=== PATIENT | female | born 1970 | race Asian ===

== ENCOUNTER 2017-08-29 19:38 | Emergency (ER) | payer BC, SELFPAY ==
[2017-08-29 19:39] VITALS: BP 106/78; PULSE 77; RESP 15; TEMP 36.6; O2SAT 98; BMI 21.9
[2017-08-29 19:48] VITALS: O2SAT 100
[2017-08-29] MEDS: MethylPREDNISolone 125 MG/2 ML Vial 100 MG IV (20:24)
[2017-08-29] MEDS: DiphenhydrAMINE 50 MG/ML Syringe 25 MG IV (20:25)
--- NOTE | 2017-08-29 20:25 | RAD_ITS ---
STUDY: X-RAY CHEST REASON FOR EXAM: Female, 47 years old. Shortness of breath TECHNIQUE: Frontal view of the chest COMPARISON: 04/09/2017 FINDINGS: The lungs are clear. There are no pleural effusions. There is no pneumothorax. The heart is normal in size. The visualized osseous structures are within normal limits. RAD/Chest 1 View (Portable) IMPRESSION: No acute thoracic pathology. Electronically Signed: Ajith Mcallister, at 21:31 EDT Tel , Service support ,
[2017-08-29 22:09] VITALS: BP 108/65; PULSE 80; RESP 18; O2SAT 98
--- NOTE | 2017-08-29 23:00 | ED.VISSUMM ---
- ER Visit Summary Date of Service: 08/29/17 Chief Complaint: Shortness of breath History of Present Illness: The patient is a 47 F reports shortness of breath starting at 630 tonight after eating dinner. Patient states that she ate spicy scallops. She is complaining of a acid feeling in the back of her throat and states that she feels better after burping. She told the nurse that she took Benadryl prior to arrival thinking it might be an allergic reaction. Patient tells me this happens to her approximately once a week, but usually does not last this long or this severe. Patient states she was diagnosed with asthma but has never had an asthma attack and does not know what that feels like. Physical Examination: Vital signs are unremarkable. Patient sitting upright in bed leaning forward. She speaking with a strong voice. Head and neck examination was right TM to be clear. There is some mild debris in the left ear canal. Intraoral examination reveals no tongue edema. Heart is regular rate and rhythm. Lung sounds are clear. Abdomen is soft nontender. Skin examination reveals no rash or lesions. Test Results: Portable chest x-ray reveals no acute pathology. Emergency Department Course and Treatment: Patient was initially ordered a GI cocktail. Before this could be given as asked to come back in and reevaluate the patient. Patient was leaning forward and drooling. She stated that she was having difficulty swallowing. She speaks with a strong voice. Her lungs are clear to auscultation bilaterally. Her oxygen saturation is 100%. Patient states she does not really feel that there is something caught in her throat she does not remember choking on anything. At that time IV line was established and she was given Solu-Medrol, Benadryl, and Pepcid. Patient was rechecked multiple times with no further drooling. She states that she is feeling significantly improved. Patient has been observed for 2-1/2 hours after medication given it has remained completely asymptomatic. She is able to get up and ambulate to the restroom and back without difficulty. I did explain to the patient that I have no way on my testing to determine if this was truly an allergic reaction to something she ate. With her having transient drooling I certainly do have a concern for this. Patient will be given prednisone for home of the next several days and she will take Benadryl. I will write her for an EpiPen to have at home in case of emergency only. Treatment Plan: [] Disposition: Discharge Impression: Allergic reaction, improved This note was generated with [employer] dictation software. It may contain incorrect words, spelling, and punctuation that were not noted in review of the chart prior to signing ED Disposition - Plan for ED Patient: Chief Complaint: Shortness of Breath Referrals: Tremaine Rao MD [Primary Care Provider] -
--- NOTE | 2017-08-29 23:03 | ED.DEP ---
ED Disposition - Plan for ED Patient: Disposition: Home or Assisted Living Chief Complaint: Shortness of Breath Instructions: ED Allergic Reaction General Other Prescriptions: Epinephrine [Epi Pen] 0.3 mg IM X1 PRN #1 syringe PRN Reason: Allergies Prednisone [Deltasone] 40 mg PO DAILY #8 tablet Referrals: Tremaine Rao MD [Primary Care Provider] - 1 Week
[2017-08-29 23:20] VITALS: BP 101/55; PULSE 77; RESP 16; O2SAT 96
== END 2017-08-29 23:20 | disposition home or self-care (01) ==
PROVIDERS: Emergency Provider Emergency Medicine; Family Provider Family Medicine; PCP Family Medicine
DX: T78.1XXA Other adverse food reactions, not elsewhere classified, initial encounter (principal); X58.XXXA Exposure to other specified factors, initial encounter; J45.909 Unspecified asthma, uncomplicated
CPT/HCPCS: 71045; 96365; 96375; 99284; J7050; A4216; J3490

== ENCOUNTER → 2017-12-04 16:15 | Outpatient (CLI) | payer BC, SELFPAY ==
[2017-12-11 09:58] LABS: HPV Reflexed? NOT INDICATED
== END ==
PROVIDERS: Family Provider Family Medicine; PCP Family Medicine; Visit Provider Obstetrics & Gynecology
DX: Z12.4 Encounter for screening for malignant neoplasm of cervix (principal)
CPT/HCPCS: 88175; G0145

== ENCOUNTER → 2017-12-24 15:45 | Outpatient (CLI) | payer BC, SELFPAY ==
--- NOTE | 2017-12-24 15:47 | BI_ITS ---
MAMMOGRAPHY - BILATERAL SCREENING REASON FOR EXAM: Female, 47 years old. Routine annual screening examination. PERTINENT HISTORY: Non-contributory. TECHNIQUE: Digital bilateral breast luis angel (3D mammographic acquisition) in the CC and MLO projections. 2-D mediolateral oblique (MLO) and craniocaudad (CC) views of both breasts were obtained. CAD: Full Field Digital Mammography with Computer Added Detection was performed. COMPARISON: Comparison is made with prior examination dated November 25, 2016 and December 21, 2014. FINDINGS: Breast Composition: The breasts are extremely dense, which lowers the sensitivity of mammography. There is a 2.1 cm x 2 cm well-defined nodule in the upper midportion of the left breast. There is also evidence of a 1.8 cm x 1.4 cm well-defined nodule with a small calcification in the mid deep portion of the breasts. Correlation with ultrasound is recommended. No other significant abnormalities are identified. BI/SCREENING MAMM (CAD), BILAT IMPRESSION: Nodular densities in the left breast as described. Correlation with ultrasound is recommended. ASSESSMENT CATEGORY: BIRADS Category 0: Incomplete. Need additional imaging evaluation. A letter regarding these results will be sent to the patient by the facility within 30 days. Approximately 10% of breast cancers are not detected by mammography. A normal mammogram should not delay biopsy of a clinically suspicious abnormality. [id number] Electronically Signed: Jeyson Morales MD at 11:29 EDT Tel [phone], Service support ,
== END ==
PROVIDERS: Family Provider Family Medicine; PCP Family Medicine; Visit Provider Obstetrics & Gynecology
DX: Z12.31 Encounter for screening mammogram for malignant neoplasm of breast (principal)
CPT/HCPCS: 77063; 77067

== ENCOUNTER → 2017-12-29 15:18 | Outpatient (CLI) | payer BC, SELFPAY ==
--- NOTE | 2017-12-29 15:23 | US_ITS ---
STUDY: ULTRASOUND BREAST - LEFT REASON FOR EXAM: Female, 47 years old. Left breast nodules, additional ultrasound imaging recommended. TECHNIQUE: Axial and longitudinal images of the LEFT breast were performed with a high resolution ultrasound transducer. COMPARISON: No prior ultrasound imaging available. Correlation mammograms 12/24/2017 through 12/21/2014. FINDINGS: LEFT Breast: The first lesion measures 2.0 x 1.3 x 0.9 cm and appears round and heterogeneous with probably hypoechogenicity with smooth appearing well-demarcated margins without internal color Doppler signal suggests a minimally complex cyst. Clock notation: 12 o'clock position. Distance from nipple: 2 cm. Posterior Enhancement: Mild Posterior Shadowing: None Margins: As above Echogenicity: As above Compression effect on Shape: No change identified. The second lesion is approximately 0.5 x 0.4 x 0.5 cm in the 3:00 position 2 cm from the nipple and appears to represent a round smooth margin well-demarcated heterogeneous mostly hypoechoic minimally complex cyst without internal color Doppler signal. The third lesion is approximate 0.5 x 0.9 x 0.3 cm in the 3:00 position and appears to represent a round smooth margin well-demarcated hypoechoic cyst without internal color Doppler signal identified. Color Doppler signal adjacent to the periphery is seen in one area.. The retroareolar region shows approximately 1.8 x 2.3 x 0.9 cm heterogeneous mostly hypoechoic area which may represent enlarged ducts without abnormal internal color Doppler signal. US/Breast Limited Unilateral IMPRESSION: Probably benign ultrasound findings as described some of which appear to correspond to the 2 mammographic findings described. Recommend left mammogram in 6 months for short-term interval follow-up of probably benign findings. Possible left targeted ultrasound to follow as clinically indicated. ASSESSMENT CATEGORY: BIRADS Category 3: Probably Benign - Short-Interval Follow-up Suggested. A letter regarding these results will be sent to the patient by the facility within 30 days. Electronically Signed: Aj Gulshan, at 17:55 EDT Tel , Service support ,
== END ==
PROVIDERS: Family Provider Family Medicine; PCP Family Medicine; Visit Provider Obstetrics & Gynecology
DX: N63.20 Unspecified lump in the left breast, unspecified quadrant (principal)
CPT/HCPCS: 76642

== ENCOUNTER → 2018-06-26 13:12 | Outpatient (CLI) | payer BC, SELFPAY | PROVIDERS: Visit Provider Obstetrics & Gynecology | DX: R30.0 Dysuria (principal) | CPT/HCPCS: 87086 ==

== ENCOUNTER 2018-08-10 05:45 | Day surgery (SDC) | payer BC, SELFPAY ==
[2018-08-05 13:29] LABS: Hematocrit 43.5 % (37-47); Hemoglobin 14.7 g/dl (12.0-15.0); Mean Corp Hgb Conc 33.8 g/gl (32-36); Mean Corpuscular Hgb 30.4 pg (27.0-32.0); Mean Corpuscular Volume 89.9 fL (81-99); Mean Platelet Vol. 10.3 fl (6.2-12.0); Platelet Count 267 K/mm3 (150-450); RBC Distribution Width CV 12.6 % (11.6-14.6); RBC Distribution Width SD 41.4 fl (35.1-43.9); Red Blood Count 4.84 M/mm3 (4.2-5.4); White Blood Count 5.1 K/mm3 (4.4-11.0)
[2018-08-05 13:34] LABS: Scan Indicated on CBC? Y/N NO
[2018-08-05 13:39] LABS: AST(SGOT) 17 U/L (15-37); Alanine Aminotransfer ALT/SGPT 25 U/L (13-56); Albumin, Serum 3.7 g/dL (3.2-5.0); Alkaline Phosphatase 45 U/L (45-117); Bilirubin, Direct 0.09 mg/dL (0.00-0.30); Creatinine, Serum 0.67 mg/dL (0.55-1.02); EST Glomerular Filtration Rate 100 mL/min (>60); Est Glom Filt Rate - Afr Amer 121 mL/min (>60); Globulin 4.7 g/dL (2.2-4.2); Protein, Total 8.4 g/dL (6.4-8.2)
[2018-08-05 13:48] LABS: International Normalized Ratio 1.1; Partial Thromboplast Time 30.3 Seconds (24.1-36.2); Prothrombin Time (Protime)PT. 13.7 SECONDS (11.7-14.9)
--- NOTE | 2018-08-09 20:30 | PCM.HP.BLA ---
History and Physical Date of Admission: 08/10/18 Surgical History and Physical Kirsten Phillips, a 48 year old female 2 0 3 0 2, presents for RAVH/BS on August 10, 2018 at 11:40. -- Large Symptomatic Fibroid, Menorrhagia, Pelvic Pain s/p Ablation for Menorrhagia -- Pelvic pain which began months ago. Kirsten claims it started gradually and has been present months. It occurs intermittently. It is located in the lower abdomen. Severity is moderate; Associated signs and symptoms are cramping, urgency. Additional comments are: u/s shows 7 cm uterine fibroid; Additional comments are: on Mircette which seems to controlling bleeding recently. MEDICATIONS HISTORY: Current medications prescribed by our practice are: 1. Mircette (28) 0.15 mg-0.02 mg (21)/0.01 mg (5) tablet, One pill by mouth once a day Patient is also takin. calcium 500 mg tablet 2. multivitamin tablet 3. Zyrtec 10 mg tablet, prn ALLERGIES: aspirin, Numbness, Aspirin and Bleeding (non-specific) Infections - Hepatitis B Illnesses - no serious past illnesses Accidents - no injuries of consequence Hospitalizations - Childbirth and see surgery Chicken Pox 07/2005; Review of Systems: GENERAL - Denies fever, or chills SKIN - Denies skin changes EYES - Denies visual changes EARS - Denies difficulty hearing NOSE - Denies nasal congestion or bleeding MOUTH - Denies sore throat or difficulty swallowing NECK - Denies pain or swelling RESPIRATORY - Denies shortness of breath or wheezing CARDIOVASCULAR - Denies palpitations or chest pain GASTROINTESTINAL - Denies nausea, vomiting, diarrhea, constipation GENITOURINARY - Denies dysuria, frequency of urination, incontinence of urine MUSCULOSKELETAL - Denies joint or muscle pain NEUROLOGICAL - Denies localized numbness or weakness PSYCHIATRIC - Denies depression or anxiety ENDOCRINE - Denies heat or cold intolerance, weight loss or gain HEMATO-IMMUNOLOGIC - Denies excessive bleeding with cuts SOCIAL HISTORY: Alcohol Use - drinks occasionally Smoking - denies smoking Diet - no special diet Lifestyle - moderate stress lifestyle and Exercise - active Seat Belt Use - always 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 Paternal history of Diabetes. Father: Diabetic. Maternal Grandmother: Ovarian cancer. MENSTRUAL HISTORY: LMP Known?- Approximate-Month KnownAmount/Duration - 5 to 7 days, Regularity - Regular, Frequency - monthly days, LMP - 07/11/18, Age Onset Menarche - 13 PAST PREGNANCIES: Total Pregnancies - 6; Full Term Pregnancies - 2; Premature - 0; Abortions, Induced - 0; Abortions, Spontaneous - 3; Ectopics - 0; Multiple Births - 0; Living Children - 2 SURGICAL HISTORY: 1. D and C X3 ; - miscarriage 2. 10/11/2010 Hysteroscopy, [facility] ; Joseph Saucedo M.D. - Menorrhagia PHYSICAL EXAM BP- 102/70 Sitting, Right arm, regular cuff Weight- 106.03688 lbs Height- 61 inch BMI:20.07 CONSTITUTIONAL - NAD, well nourished, and well developed SKIN - No rash, lesions, or ulcers HEENT - Normocephalic, PERRLA, EOMI NECK - No nodes, no nuchal rigidity and thyroid normal size and texture LYMPH NODES - Palpation of lymph nodes in neck and groins within normal limits LUNGS - CTA x2 without wheezes, crackles or rales CARDIAC - Regular rate and rhythm without rubs, murmurs, or gallops BREAST - No dominant masses, no tenderness, no axillary adenopathy, no nipple discharge, no skin changes ABDOMEN - Without hepatosplenomegaly, distention, masses, rebound, or guarding; normal bowel sounds; no hernias EXTREMITIES - No edema or calf tenderness NEUROLOGICAL - Cranial nerves II-XII grossly intact PSYCHIATRIC - A and O to time, place, person, mood and affect External Genitial Vagina - non-tender without lesions Urethra/Urethral Meatus - non-tender Bladder - increased tenderness over trigone Vagina - vaginal diallo are pink and moist without loss of rugae and no evidence of atropy Cervix - without cervical motion tenderness and has normal size and features without evident lesions and high in vagina Uterus - enlarged uterus 10 wks, wt 175-275 g Adnexa - clear without massess or tenderness ASSESSMENT/PLAN: 1. Enlarged Uterus, Leiomyoma, Unspec, Menorrhagia, Pelvic Pain and Unspec Likely due to large fibroid noted on u/s. Discussed options for treatment and suggested RAVH/BS. Desires we proceed. Discussed RBAs and all questions answered.
[2018-08-10] VITALS (12 sets, daily range): BP systolic 81–116; BP diastolic 41–71; PULSE 53–76; RESP 14–18; TEMP 36.1–37.2; O2SAT 95–100; BMI 21.3
[2018-08-10 06:56] LABS: Internal QC Validated? YES +Cl - CLEAR BKGD
[2018-08-10 06:57] LABS: Pregnancy, Urine Negative Negative
--- NOTE | 2018-08-10 07:30 | HYST_PTH ---
PATIENT: ANAIS VALENTIN LOC: [facility] U#:[id number] AGE/SX: 48/F ROOM: RE08/10/[address]: Dr. Joseph Saucedo MD : 1970 BED: DIS: 08/11/2018 SPEC #: [id number] RECD: 08/10/18 11:27 STATUS: SHARAD GUDELIA #: [id number] BUTCH: 08/10/18 07:[address]: Joseph Saucedo DEPT: SURGICAL PATHOLOGY RECD BY: Domenic Moya ENTERED: 08/10/18 12:07 SP TYPE: HYSTERECT OTHR DR: Dr. Tremaine Rao MD Tissues: Uterus, NOS Procedures: Surgery Specimen Level V HEADER OPERATION: Robotic assisted vaginal hysterectomy, bilateral salpingotomy PRE-OP DIAGNOSIS: Enlarged uterus, leiomyoma, menorrhagia, pelvic pain TISSUE SUBMITTED: Uterus, cervix, bilateral fallopian tubes, right ovary MICROSCOPIC DIAGNOSIS Uterus, cervix, bilateral fallopian tubes and right ovary, vaginal hysterectomy, bilateral salpingectomy and right oophorectomy: Cervix - chronic cystic cervicitis. Endometrium - focal area of weakly proliferative endometrium. See comment. Myometrium - diffuse adenomyosis. - An intramural leiomyoma (1.5 cm in diameter). Bilateral fallopian tubes - no pathologic diagnosis. Right ovary - no pathologic diagnosis. Left paratubal cyst. SJ:royal 08/11/18 COMMENT Most of the endometrium appears denuded. MICROSCOPIC DESCRIPTION Slides are reviewed. GROSS DESCRIPTION Received in fixative is one container labeled with the patient's name and designated uterus, cervix, bilateral fallopian tubes and right ovary. The specimen consists of a hysterectomy specimen in multiple pieces consisting of uterus, cervix, attached right fallopian tube and ovary and attached left fallopian tube to the largest piece of uterus. The uterus with cervix in multiple pieces weighs 304 gm. One of the pieces consists of cervix which measures 4.5 x 2 x 2 cm. The ectocervical mucosa is congested. The endocervical canal measures 4 cm in length. The endocervical mucosa is unremarkable. Sections of the cervix reveal a few cysts filled with mucoid material. The largest piece of uterus measures 10 x 9 x 7 cm. A focal area shows endometrium which is starr, glistening without any mass lesion and measures <0.1 cm in thickness. The smaller pieces of the uterus measure in aggregate 12 x 11 x 3 cm. Sections of the largest piece of uterus reveal diffusely thickened myometrial cut surfaces without any mass lesion. The myometrial wall measures up to 5 cm in thickness. Sections of the smaller pieces of the uterus reveal one nodular mass measuring 1.5 cm in diameter. Sections of this mass reveals starr whorled cut surfaces without areas of hemorrhage, necrosis or cystic degeneration. The right fallopian tube measures 6 cm in length and 0.5?cm in diameter. The fimbrial end is identified. No tubo-ovarian adhesion is noted. Sections reveal unremarkable cut surfaces. The right ovary measures 1.5 x 1 x 0.4 cm. Sections reveal unremarkable cut surfaces. The left fallopian tube is similar appearance to right and measures 8 cm in length and 0.5?cm in diameter. A paratubal cyst is also noted measuring 1 cm in greatest dimension. The cyst is filled with clear fluid. [employer] sections are submitted in 12 cassettes as follows: 1 & 2 - cervix, 38??uterine wall (3, 4 & 5 also contains endometrium, 6 & 7 also contains the serosal surface, 8??smaller fragments; 3-5 contains the section from the largest uterine piece and 8 contains a section from the smaller detached pieces), 9 - nodular mass, 10 - right fallopian tube, 11 - right ovary, entirely submitted, 12 - left fallopian tube and paratubal cyst. / KYREE:royal 08/10/18 TC:5 CPT: 29542
--- NOTE | 2018-08-10 07:41 | OP.PCM_ITS ---
Report of Operation Date of Procedure: 08/10/18 Pre-Operative Diagnosis: Uterine Fibroids, Menorrhagia, Pelvic Pain, Prior Ablation Post-Operative Diagnosis: Uterine Fibroids, Menorrhagia, Pelvic Pain, Prior Ablation Surgery/Procedure Performed:: RAVH/Bilater Salpingectomy/ Right Oophrectomy Description of Surgical Findings:: 14 cm fibroid uterus with normal-appearing fallopian tubes and ovaries. professional golf tournament player: Jose Robb Type of Anesthesia:: General - Endotracheal Anesthesiologist: Tomas Fontaine Specimen's removed: Uterus, bilateral fallopian tubes, right ovary Drains: Joy to straight drain Estimated Blood Loss (mL): Minimal Fluids Replaced: Crystalloid Description of Procedure: Surgeon: Joseph Saucedo MD, FACOG Indication: This is a 48 year old patient who has been having problems with menorrhagia and symptomatic uterine fibroids. Conservative measures have not been helpful. The patient has been counseled regarding the risks, benefits and alternatives of this procedure including the possibility of bleeding, infection, and injury to surrounding structures such as bowel bladder and all questions were answered. She understands that if BSO is needed that she will need to be on HRT for an indefinite period of time. Procedure: Pt taken to the operating room where after induction of general anesthesia the patient was prepped and draped in the usual sterile fashion and placed on a non-slip Huggy-u-vac device. Trendendelenburg test was satisfactory. Bladder was drained of urine with a Joy catheter which was left in place. Anterior cervix grasped and cervix was dilated to about 3-4 mm. Uterus sounded to 8 cms. 0-Vicryl suture was placed at the 3:00 and 9:00 position of the cervix. A small V-care device was then placed in the uterus to allow uterine manipulation and attention was turned to the laparoscopic portion of the procedure. Ropivocaine 0.5% was injected approximately 3 cm superior to the umbilicus and an 8 mm robotic camera port was introduced directly with intraperitoneal placement confirmed with insufflation. 8 mm robotic side ports were introduced under direct visualization approximately 10 cm lateral and 2 cm inferior to the umbilical port. A 5 mm left upper quadrant port was introduced and airseal insufflation with CO2 was started. The above findings were noted. Robot was docked without difficulty and attention turned to the robotic portion of the procedure. Approximately 20 cc of Ropivicaine was used. Bilateral infundibulocal ligaments/mesosalpinx were ligated with 35 roth bipolar coagulation to the level of the round ligament. The posterior aspect of the cervix was identified and then opened for about 1 cm using 25 watt monopolar cautery but we were unable to identify the V-care device which had been placed vaginally due to a wide posterior vaginal cuff. Bladder flap was opened and divided to the level of the round ligaments using monopolar cautery. Progressive bites were then ligated on each side of the cervix with 35 roth bipolar cautery to the uterine arteries. The anterior vaginal mucosa was then entered and cervix circumscribed with monopolar cautery. Uterus and attached ovaries and tubes were then removed through the vagina in pieces after undocking the robot. Robot was re-docked and vaginal cuff was closed first with 0-Vicryl Sydney stitches placed at each angle followed by closure of the mid-cuff with 0- Monocryl V-lock suture in two layers. Pelvis was copiously irrigated with saline and the right left ureters yepez noted to peristalse. Robot was undocked and trocars were removed with as much gas as possible. Incisions were closed with 4-0 Monocryl subcuticular sutures and incisions covered with steri-strips and opsite dressing. The patient tolerated the procedure well and was taken to the recovery room in satisfactory condition. Sponge, instruments and needle counts were all correct. There were no apparent complications of the surgery. Cefotan 2 gms IV was given prior to the procedure. Grafts/Implants Used: None - Complications None - Admit VTE Documentation VTE Present on Admission: Yes VTE Mechan Device Prophylaxis: SCD's VTE Pharm Prophylaxis ordered?: Yes
--- NOTE | 2018-08-10 07:42 | DCINST_ITS ---
Discharge Diet: No Restrictions Discharge Activity: Return to Normal Activity, May Not Drive - while taking narcotic pain medications., May Shower May resume sexual activity in: 6-8 weeks Call your doctor if your incision/area has: Continuous Slow Oozing, Sudden Increased Bleeding, Increased Pain/ Swelling, Increased Redness, Foul Smelling Discharge Call your doctor if you observe: Fever of 101 or Higher, Inability to urinate, Inability to have a bowel movement, Using more than one pad per hour Allergies/Adverse Reactions: Allergies NSAIDS (Non-Steroidal Anti-Inflamma Adverse Reaction (Verified 08/03/18 08:19) Other bleeds easily Medications to take at Discharge Calcium Citrate/Vitamin D3 [Hm Calcium Citrate +Vit D3 Tab] 1 each PO DAILY 06/23/14 Iron Carbonyl [Feosol] 45 mg PO DAILYCM 06/23/14 Multivitamins,Therapeutic 1 tab PO DAILY 06/23/14 Epi Pen (for allergic rxn) [Epi Pen] 0.3 mg IM X1 PRN #1 syringe 08/29/17 Docusate Sodium [Colace] 100 mg PO BID PRN PRN #60 cap 08/10/18 Oxycodone [Oxyir] 5 mg PO Q6H PRN PRN 7 Days #20 tab 08/10/18 The following prescriptions were given: Oxycodone [Oxyir] 5 mg PO Q6H PRN PRN 7 Days #20 tab PRN Reason: Severe Pain (6-03/04) Docusate Sodium [Colace] 100 mg PO BID PRN PRN #60 cap PRN Reason: Constipation Orders to be completed after discharge: Liver Profile Time Frame: 08/03/18, Location: Laboratory Primary Care Physician: Tremaine Rao MD [Primary Care Provider] - Test Results: Test results from this visit will be discussed in further detail at your follow- up appointment, if applicable. Please Follow Up With: Joseph Saucedo MD When: 2-3 weeks
[2018-08-10] MEDS: Ropivacaine 0.5% 30 ML Vial (08:25)
[2018-08-10] MEDS: Lactated Ringers 1,000 ML 125 ML IV ×2 (12:42→20:57)
[2018-08-10] MEDS: Ketorolac 30 MG/ML Syringe IV (14:32)
[2018-08-10] MEDS: Ondansetron 4 MG/2 ML Vial IV (16:53)
[2018-08-10] MEDS: Acetaminophen 500 MG Tablet 1000 MG PO (18:25)
[2018-08-10] MEDS: Enoxaparin 30 MG/0.3 ML Syringe SC (18:25)
--- NOTE | 2018-08-10 20:53 | NURSING ---
Pt put into chair. legs alittle wobbly
[2018-08-11] MEDS: Ketorolac 30 MG/ML Syringe IV ×2 (00:41→06:01)
[2018-08-11 03:33] VITALS: BP 95/54; PULSE 65; RESP 16; TEMP 36.8; O2SAT 99
[2018-08-11 06:02] LABS: Hemoglobin 11.3 g/dl (12.0-15.0); Mean Corp Hgb Conc 33.2 g/gl (32-36); Mean Corpuscular Hgb 30.1 pg (27.0-32.0); Mean Corpuscular Volume 90.4 fL (81-99); Mean Platelet Vol. 10.6 fl (6.2-12.0); Platelet Count 208 K/mm3 (150-450); RBC Distribution Width CV 12.5 % (11.6-14.6); RBC Distribution Width SD 40.1 fl (35.1-43.9); Red Blood Count 3.76 M/mm3 (4.2-5.4); White Blood Count 8.1 K/mm3 (4.4-11.0)
[2018-08-11 06:14] LABS: Scan Indicated on CBC? Y/N NO
[2018-08-11 06:48] LABS: Creatinine, Serum 0.52 mg/dL (0.55-1.02); EST Glomerular Filtration Rate 132 mL/min (>60); Est Glom Filt Rate - Afr Amer 160 mL/min (>60); Estimated Creatinine Clearance 95.03 ml/min
--- NOTE | 2018-08-11 08:56 | PCM.PN.OB ---
Subjective: Patient without complaints. Tolerating diet well. Minimal vaginal bleeding. - Physical Exam Vital Signs Temp Pulse Resp BP Pulse Ox 98.2 F 65 16 95/54 L 99 08/11/18 03:33 08/11/18 03:33 08/11/18 03:33 08/11/18 03:33 08/11/18 03:33 Oxygen Delivery Method Room Air Weight: 109 lb 5.588 oz Body Mass Index (BMI) 21.3 Intake and Output for Last 24 Hours 08/09/18 08/10/18 08/11/18 23:59 23:59 23:59 Intake Total 3052 / 3052 1926 / 1926 Output Total 1900 / 1900 2074 / 2074 Balance 1152 / 1152 -149 / -149 Laboratory Tests Past 24 Hrs 08/11/18 08/11/18 05:35 05:35 WBC 8.1 RBC 3.76 L Hgb 11.3 L Hct 34.0 L MCV 90.4 MCH 30.1 MCHC 33.2 RDW 12.5 RDW Differential 40.1 Plt Count 208 MPV 10.6 Creatinine 0.52 L Estim Creat Clear Calc 95.03 Est GFR (MDRD) Af Amer 160 Est GFR (MDRD) Non-Af 132 Wounds are clean, dry, intact. Good urine output. Hemoglobin and creatinine okay. Medical Necessity - Tobacco Use Smoking Status: Never smoker Assessment/Plan Doing well postoperative day #1 status post robotic assisted vaginal hysterectomy, bilateral salpingectomy and right oophorectomy. We will released to home with routine instructions when able to void on her own.
[2018-08-11 09:00] VITALS: RESP 18
[2018-08-11 09:33] VITALS: BP 100/58; PULSE 69; RESP 16; TEMP 37.1; O2SAT 98
[2018-08-11 12:35] VITALS: O2SAT 98
[2018-08-11] MEDS: Acetaminophen 500 MG Tablet 1000 MG PO (12:51)
[2018-08-11 13:42] VITALS: BP 102/54; PULSE 64; RESP 16; TEMP 36.8; O2SAT 98
== END 2018-08-11 13:51 | disposition home or self-care (01) ==
LOC: SDC 05:45 → AC 05:46 → ACINP 09:10 → MS2 09:13
PROVIDERS: Anesthesiology; Family Provider Family Medicine; PCP Family Medicine; Referring Provider Obstetrics & Gynecology; Visit Provider Obstetrics & Gynecology
PROC: 0UT90ZZ Resection of Uterus, Open Approach (ICD-10-PCS; CPT 58552; principal; 2018-08-10 07:10)
DX: N92.0 Excessive and frequent menstruation with regular cycle (principal); D25.1 Intramural leiomyoma of uterus; R10.2 Pelvic and perineal pain; D25.9 Leiomyoma of uterus, unspecified; N72 Inflammatory disease of cervix uteri; N83.8 Other noninflammatory disorders of ovary, fallopian tube and broad ligament; J45.909 Unspecified asthma, uncomplicated
CPT/HCPCS: 58552; 58999; 36415; 80076; 81025; 82565; 85027; 85610; 85730; 86850; 86900; 88307; J7120; A4216; J2405

== ENCOUNTER → 2018-08-31 | Outpatient (CLI) | payer BC, SELFPAY ==
[2018-08-10 12:24] VITALS: BMI 21.3
[2018-08-31 17:20] LABS: Hematocrit 38.3 % (37-47); Hemoglobin 13.1 g/dl (12.0-15.0); Mean Corp Hgb Conc 34.2 g/gl (32-36); Mean Corpuscular Hgb 29.8 pg (27.0-32.0); Mean Corpuscular Volume 87.2 fL (81-99); Mean Platelet Vol. 9.6 fl (6.2-12.0); Platelet Count 361 K/mm3 (150-450); RBC Distribution Width CV 12.4 % (11.6-14.6); Red Blood Count 4.39 M/mm3 (4.2-5.4); Scan Indicated on CBC? Y/N NO; White Blood Count 6.5 K/mm3 (4.4-11.0)
[2018-08-31 18:02] LABS: Anion Gap 8 (5-15); Chloride 106 mmol/L (98-107); Creatinine, Serum 0.49 mg/dL (0.55-1.02); EST Glomerular Filtration Rate 143 mL/min (>60); Est Glom Filt Rate - Afr Amer 173 mL/min (>60); Potassium 3.6 mmol/L (3.5-5.1); Sodium Level 140 mmol/L (136-145); Thyroid Stim Hormone (TSH) 1.58 uIU/mL (0.358-3.74)
== END | disposition home or self-care (01) ==
LOC: WOBLAB 16:37
PROVIDERS: Visit Provider Obstetrics & Gynecology
DX: R42 Dizziness and giddiness (principal); R53.83 Other fatigue
CPT/HCPCS: 36415; 80051; 82565; 84443; 85027

== ENCOUNTER → 2019-10-01 11:39 | Outpatient (CLI) | payer OTHER, SELFPAY ==
[2018-08-10 12:24] VITALS: BMI 21.3
[2019-10-01 11:43] LABS: Lyme Ab Screen Interpretation REF LAB
[2019-10-01 15:32] LABS: Absolute Neutrophil Count 1.5 X10^3/uL (2.0-7.7); Basophil# 0.05 X10^3/uL; Eosinophil# 0.15 X10^3/uL; Hematocrit 42.1 % (37-47); Hemoglobin 13.9 g/dL (12.0-15.0); Lymphocyte % 54.1 % (19-41); Mean Corpuscular Hgb 29.9 pg (27.0-32.0); Mean Corpuscular Volume 90.5 fL (81-99); Mean Platelet Vol. 10.2 fl (6.2-12.0); Monocyte# 0.59 X10^3/uL; Monocyte% 11.8 % (0-10); NRBC Flagged by Analyzer 0 % (0-5); Neutrophil % 30.1 % (47-70); Platelet Count 261 K/mm3 (150-450); RBC Distribution Width CV 12.5 % (11.6-14.6); Red Blood Count 4.65 M/mm3 (4.2-5.4)
[2019-10-01 15:50] LABS: Erythrocyte Sedimentation Rate 19 mm/hr (0-20)
[2019-10-01 15:52] LABS: Vitamin B12 1177 pg/mL (211-911); Vitamin D,25 Hydroxy 45.5 ng/mL
[2019-10-01 16:15] LABS: ALB/GLOB Ratio 0.9 RATIO (0.9-2.4); AST(SGOT) 20 U/L (15-37); Alanine Aminotransfer ALT/SGPT 42 U/L (13-56); Alkaline Phosphatase 86 U/L (45-117); Anion Gap 7 (5-15); BUN 14 mg/dL (7-18); BUN/Creat Ratio 25.6 RATIO (10-20); CRP < 2.90 mg/L (0.0-3.0); Calcium,Total 9.1 mg/dL (8.5-10.1); Chloride 107 mmol/L (98-107); Creatinine, Serum 0.55 mg/dL (0.55-1.02); EST Glomerular Filtration Rate 125 mL/min (>60); Est Glom Filt Rate - Afr Amer 152 mL/min (>60); Ferritin 126 ng/mL (8-252); Globulin 4.6 g/dL (2.2-4.2); Glucose 84 mg/dL (74-106); Potassium 3.5 mmol/L (3.5-5.1); Protein, Total 8.6 g/dL (6.4-8.2); Sodium Level 139 mmol/L (136-145); T4 Free Direct 1.11 ng/dL (0.76-1.46); Thyroid Stim Hormone (TSH) 1.76 uIU/mL (0.358-3.74)
[2019-10-04 08:54] LABS: PTHIN 15.1 pg/mL (18.4-80.1)
[2019-10-04 15:58] LABS: ANTINUCLEAR ANTIBODIES DIRECT Negative (Negative); Lyme Scn Total Ab w/Rflx <0.91 ISR (0.00-0.90)
== END ==
PROVIDERS: PCP Family Medicine; Visit Provider Family Medicine
DX: M06.4 Inflammatory polyarthropathy (principal); R20.2 Paresthesia of skin
CPT/HCPCS: 36415; 80053; 82306; 82607; 82728; 83970; 84439; 84443; 85025; 85652; 86038; 86140; 86431; 86618

== ENCOUNTER → 2020-01-05 07:37 | Outpatient (CLI) | payer OTHER, SELFPAY ==
[2018-08-10 12:24] VITALS: BMI 21.3
--- NOTE | 2020-01-05 09:48 | NEURO_ITS ---
NCS and/or EMG Patient Report Ordering Doctor: Tremaine Rao DATE OF SERVICE: 01/05/20 Kirsten Phillips is a 49-year-old female who presents for electrodiagnostic testing of the upper limbs. She reports intermittent pain and numbness in both arms, primarily on the right side. Electrodiagnostic findings: Nerve conduction study, median motor nerve demonstrates normal distal latency, amplitude and conduction velocity bilaterally. Normal ulnar motor response bilaterally. Median, ulnar and radial sensory responses are normal. Normal median ulnar F waves. On needle EMG, all muscles tested in the upper limb showed no evidence of denervation with normal motor unit action potentials. Electrodiagnostic impression: This is a normal electrodiagnostic study of the upper limbs. There is no electrodiagnostic evidence for peripheral neuropathy, including carpal tunnel or cubital tunnel syndrome. There is no electrodiagn ostic evidence for cervical radiculopathy. If there are any further questions, please do not hesitate to contact me.
--- NOTE | 2020-01-05 15:38 | BI_ITS ---
MAMMOGRAPHY - BILATERAL SCREENING REASON FOR EXAM: Female, 49 years old. Routine annual screening examination. PERTINENT HISTORY: Non-contributory. Prior left breast biopsies. TECHNIQUE: Digital bilateral breast vesta (3D mammographic acquisition) in the CC and MLO projections. 2-D mediolateral oblique (MLO) and craniocaudad (CC) views of both breasts were obtained. CAD: Full Field Digital Mammography with Computer Added Detection was performed. COMPARISON: Comparison is made with prior study dated 12/24/2017 and 11/25/2016. FINDINGS: Breast Composition: The breasts are extremely dense, which lowers the sensitivity of mammography. There are no dominant masses or suspicious calcifications. There is a 1.5 cm x 1.2 cm well-defined nodule in the upper midportion of the left breast. Adjacent to this, a similar-appearing nodule with focal calcification is seen. This is in the mid slightly medial portion of the breast. Tissue clip marker is seen within it. No other significant abnormalities are identified. There has been no significant change since the prior study. BI/SCREEN MAMM (CAD) W/VESTA BILAT IMPRESSION: Stable bilateral screening mammogram. Yearly follow-up mammogram recommended. (A) ASSESSMENT CATEGORY: BIRADS Category 2: Benign. A letter regarding these results will be sent to the patient by the facility within 30 days. Approximately 10% of breast cancers are not detected by mammography. A normal mammogram should not delay biopsy of a clinically suspicious abnormality. [id number] Electronically Signed: Jeyson Morales, at 10:32 EDT , Service support ,
== END ==
PROVIDERS: PCP Family Medicine; Referring Provider Family Medicine; Visit Provider Obstetrics & Gynecology
DX: Z12.31 Encounter for screening mammogram for malignant neoplasm of breast (principal); R20.2 Paresthesia of skin
CPT/HCPCS: 77063; 77067; 95886; 95912; 95913

== ENCOUNTER 2020-10-17 18:00 | Outpatient (RCR) | payer OTHER, SELFPAY ==
[2018-08-10 12:24] VITALS: BMI 21.3
--- NOTE | 2020-09-26 17:02 | HP.PTEVAL_ITS ---
Patient's Visit Information ANAIS VALENTIN is a 50 year old F referred to Physical Therapy by Dr. Katerina Kingston MD with a diagnosis of vertigo. Date of Evaluation: 09/26/20 Physical Therapist: Tremaine Oviedo DPT, OCS, CSCS - Visit Plan Frequency: 1x/Week Duration: 4-6 Weeks Plan: weekly x 3-6 for. positional monitor and if bD isn't helping, trial of VOR adaptation ex. - Subjective Dr. Kingston sent over after last attack. Recurring vertigo. First attack was 10 yrs ago spinning upon waking. Happened on and off since about every two years then yearly, then with swimming. This past April had a less intense attack then again in May then at [facility]. Then a week later. Got them again this past Thrusday after covid shot. 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 Spinning for an hour or so and then feels lightheaded. Incidents happen typically in bed and she has slept propped up. Does nto happen all the time though. Went to ENT. Hearing and eyes seem OK. Sleep is interrupted during incident. Works as an forensic accountant. Sits at desk adn can happen if she turns. Afraid to go swimming. Balance feels OK, no falls. - Objective Walks and trasnfers without issues today. Cervical aROM WFLadnwithout pain. - B hallpike ching but both make slightly dizzy. - roll test. Oculomotor: no nystagmus with gaze or head shake. nocrmal purusuit anad convergence. - skew eye deviation. - ocular tilt. normal saccades. VOR 30 sec horiz gives 5/10 dizzyness for approx 1 minute. - Balance Scores Functional Gait Assessment Score: 29 % Disability: 3.3400 - Goals Goal 1:: Abolish dizzyness 90% Goal Time Frame: 4-6 Weeks Goal 2:: Pt score 30/30 on FGA Goal Time Frame: 4-6 Weeks Goal 3:: I management of condition Goal Time Frame: 4-6 Weeks Goal 4:: Roll in bed without concerns Goal Time Frame: 4-6 Weeks - Rehabilitation Potential Physical Therapy Diagnosis: vertigo BPPV vs hypofunction Rehabilitation Potential: Questionable - Anticipated Interventions Patient/Client Instruction: Educate patient on: Condition For the Purpose of:: To increase tolerance to activity/condition/position Comment: positional and adaptation, habituation ex as needed. For the Purpose of:: To increase tolerance to activity/condition/position Thank you for the opportunity to evaluate your patient. For Medicare and Medicare HMO plans, please review the plan of care and approve it. It will need to be FAXED BACK to us at [phone] for Medicare purposes. For Medicare only, by signing this I certify the plan of care. Please let me know if there are questions or concerns regarding this plan of care. Physician Signature: Date:
--- NOTE | 2020-12-05 11:51 | HP.PT.NRP ---
ANAIS VALENTIN was seen in my office for initial evaluation on 09/26/20. The following Plan of Care was established for this patient: Initial Frequency: 1x/Week Initial Duration: 4-6 Weeks Patient/Client Instruction: Educate patient on: Condition For the Purpose of:: To increase tolerance to activity/condition/position For the Purpose of:: To increase tolerance to activity/condition/position This patient was last seen in our office 10/17/20. Pertinent comments regarding their Physical therapy will appear below: Pt seen 3 visits of vestibular ex and was 90% better overall. Was to f/u two weeks later but neglected to schedule or attend. at this point, it has been over 5 weeks adn I will discontinue due to nonattendance. At this point I will be discontinuing this patient from physical therapy. I would be happy to see this patient again in the future if found appropriate by the physician. Thank you! Tremaine Oviedo, DPT, OCS, CSCS
== END 2020-10-17 19:00 | disposition home or self-care (01) ==
LOC: PT 18:00
PROVIDERS: PCP Family Medicine; Referring Provider Family Medicine; Visit Provider Family Medicine
DX: R42 Dizziness and giddiness (principal)
CPT/HCPCS: 97110; 97162; 97530

== ENCOUNTER → 2021-02-06 11:42 | Outpatient (CLI) | payer OTHER, SELFPAY ==
--- NOTE | 2021-02-06 11:44 | RAD_ITS ---
STUDY: X-RAY CHEST REASON FOR EXAM: Female, 50 years old. SHORTNESS OF BREATH TECHNIQUE: PA and lateral views of the chest. COMPARISON: 08/29/2017 FINDINGS: The lungs are clear and expanded. There is no demonstrated pleural abnormality. Normal size heart. Normal mediastinum and sandy. Normal visualized pulmonary arteries. Normal visualized aortic arch and descending thoracic aorta. Normal visualized thoracic spine. Normal visualized ribs, clavicles, and shoulders. There is no demonstrated abnormality of the visualized soft tissue structures of the upper abdomen. RAD/Chest PA and Lateral IMPRESSION: No acute pulmonary process Electronically Signed: Rome Mancera MD at 10:07 EDT , Service support ,
[2021-02-06 15:08] LABS: Absolute Neutrophil Count 1.9 X10^3/uL (2.0-7.7); Basophil# 0.06 X10^3/uL; Basophil% 1.1 % (0-1); Eosinophil# 0.15 X10^3/uL; Eosinophils% 2.8 % (0-5); Hematocrit 41.7 % (37-47); Lymphocyte % 49.3 % (19-41); Mean Corp Hgb Conc 33.6 g/dL (32-36); Mean Corpuscular Hgb 30.2 pg (27.0-32.0); Mean Corpuscular Volume 89.9 fL (81-99); Mean Platelet Vol. 10.1 fl (6.2-12.0); Monocyte# 0.56 X10^3/uL; Monocyte% 10.6 % (0-10); NRBC Flagged by Analyzer 0 % (0-5); Neutrophil # 1.89 X10^3/uL (2.7-7.7); Platelet Count 288 K/mm3 (150-450); RBC Distribution Width CV 12.2 % (11.6-14.6); RBC Distribution Width SD 40.3 fl (35.1-43.9); Red Blood Count 4.64 M/mm3 (4.2-5.4); White Blood Count 5.3 K/mm3 (4.4-11.0)
[2021-02-06 15:18] LABS: D-Dimer Quantitative (DVT/PE) <= 0.27 FEU/ug/m (0.27-0.49)
[2021-02-06 15:30] LABS: ALB/GLOB Ratio 0.8 RATIO (0.9-2.4); AST(SGOT) 27 U/L (15-37); Alanine Aminotransfer ALT/SGPT 67 U/L (13-56); Albumin, Serum 3.8 g/dL (3.2-5.0); Alkaline Phosphatase 73 U/L (45-117); Anion Gap 11 (5-15); BUN 14 mg/dL (7-18); BUN/Creat Ratio 22.3 RATIO (10-20); Calcium,Total 9.5 mg/dL (8.5-10.1); Chloride 108 mmol/L (98-107); Creatinine, Serum 0.63 mg/dL (0.55-1.02); EST Glomerular Filtration Rate 106 mL/min (>60); Est Glom Filt Rate - Afr Amer 129 mL/min (>60); Globulin 4.8 g/dL (2.2-4.2); Glucose 97 mg/dL (74-106); Potassium 3.6 mmol/L (3.5-5.1); Protein, Total 8.6 g/dL (6.4-8.2); Sodium Level 141 mmol/L (136-145)
== END ==
PROVIDERS: PCP Family Medicine; Referring Provider Family Medicine; Visit Provider Family Medicine
DX: R06.02 Shortness of breath (principal)
CPT/HCPCS: 36415; 71046; 80053; 85025; 85379

== ENCOUNTER → 2021-04-10 17:00 | Outpatient (CLI) | payer OTHER, SELFPAY ==
--- NOTE | 2021-04-10 16:18 | BI_ITS ---
MAMMOGRAPHY - BILATERAL SCREENING REASON FOR EXAM: Female, 50 years old. Routine annual screening examination. PERTINENT HISTORY: Prior left breast biopsy. TECHNIQUE: Digital bilateral breast vesta (3D mammographic acquisition) in the CC and MLO projections. 2-D mediolateral oblique (MLO) and craniocaudad (CC) views of both breasts were obtained. CAD: Full Field Digital Mammography with Computer Added Detection was performed. COMPARISON: Comparison is made with prior study dated 01/05/2020 and 12/24/2017. FINDINGS: Breast Composition: The breasts are extremely dense, which lowers the sensitivity of mammography. Once again, there is a 1.5 cm x 1.2 cm well-defined nodule in the central deep portion of the left breast. 2 tissue markers are seen within it. Microcalcifications are seen as well. Stable benign-appearing bilateral axillary lymph nodes. No other significant abnormalities are identified. There has been no significant change since the prior study. BI/SCRN MAMM (CAD)W/VESTA BILAT IMPRESSION: Stable bilateral screening mammogram. Yearly follow-up mammogram recommended. (A) ASSESSMENT CATEGORY: BIRADS Category 2: Benign. A letter regarding these results will be sent to the patient by the facility within 30 days. Approximately 10% of breast cancers are not detected by mammography. A normal mammogram should not delay biopsy of a clinically suspicious abnormality. [id number] Electronically Signed: Jeyson Morales MD at 8:26 EST , Service support ,
== END ==
PROVIDERS: PCP Family Medicine; Referring Provider Obstetrics & Gynecology; Visit Provider Obstetrics & Gynecology
DX: Z12.31 Encounter for screening mammogram for malignant neoplasm of breast (principal)
CPT/HCPCS: 77063; 77067

== ENCOUNTER 2021-08-25 08:02 | Outpatient (CLI) | payer OTHER, SELFPAY ==
[2021-08-25 09:02] LABS: Absolute Lymphocyte Count 2.56 X10^3/uL (0.83-4.51); Absolute Neutrophil Count 1.6 X10^3/uL (2.0-7.7); Basophil# 0.07 X10^3/uL; Basophil% 1.4 % (0-1); Eosinophil# 0.21 X10^3/uL; Eosinophils% 4.2 % (0-5); Hematocrit 41.2 % (37-47); Lymphocyte # 2.56 X10^3/ul (0.83-4.51); Lymphocyte % 50.9 % (19-41); Mean Corpuscular Hgb 30.2 pg (27.0-32.0); Mean Platelet Vol. 9.9 fl (6.2-12.0); Monocyte# 0.54 X10^3/uL; Monocyte% 10.7 % (0-10); NRBC Flagged by Analyzer 0 % (0-5); Neutrophil # 1.63 X10^3/uL (2.7-7.7); Neutrophil % 32.4 % (47-70); Platelet Count 241 K/mm3 (150-450); RBC Distribution Width CV 12.4 % (11.6-14.6); RBC Distribution Width SD 40.3 fl (35.1-43.9); Red Blood Count 4.63 M/mm3 (4.2-5.4)
[2021-08-25 09:26] LABS: BUN 14 mg/dL (7-18); Calcium,Total 8.7 mg/dL (8.5-10.1); Creatinine, Serum 0.67 mg/dL (0.55-1.02); EST Glomerular Filtration Rate 99 mL/min (>60); Est Glom Filt Rate - Afr Amer 120 mL/min (>60); Glucose 98 mg/dL (74-106)
[2021-08-25 09:27] LABS: Anion Gap 5 (5-15); Chloride 106 mmol/L (98-107); Cholesterol 221 mg/dL (200); Ferritin 234 ng/mL (8-252); High Density Lipoprotein 60 mg/dL; Potassium 3.8 mmol/L (3.5-5.1); Sodium Level 138 mmol/L (136-145); Triglycerides 66 mg/dL; Very Low Density Lipoprotein 13 mg/dL (5-40)
== END 2021-08-25 23:59 | disposition home or self-care (01) ==
LOC: LAB 08:05
PROVIDERS: PCP Family Medicine; Referring Provider Registered Nurse; Visit Provider Registered Nurse
DX: R53.83 Other fatigue (principal); Z86.2 Personal history of diseases of the blood and blood-forming organs and certain disorders involving the immune mechanism; Z13.220 Encounter for screening for lipoid disorders
CPT/HCPCS: 36415; 80048; 80061; 82728; 85025

== ENCOUNTER → 2022-05-03 | Outpatient (CLI) | payer BC, SELFPAY ==
--- NOTE | 2022-05-03 13:43 | BI_ITS ---
MAMMOGRAPHY - BILATERAL SCREENING REASON FOR EXAM: Female, 51 years old. Routine annual screening examination. PERTINENT HISTORY: Non-contributory. TECHNIQUE: Digital bilateral breast vesta (3D mammographic acquisition) in the CC and MLO projections. 2-D mediolateral oblique (MLO) and craniocaudad (CC) views of both breasts were obtained. CAD: Full Field Digital Mammography with Computer Added Detection was performed. COMPARISON: Comparison is made with prior examination dated 04/10/2001 and 01/05/2020. FINDINGS: Breast Composition: The breasts are extremely dense, which lowers the sensitivity of mammography. There are no dominant masses or suspicious calcifications. Stable 1.5 cm x 1.2 cm well-defined nodule in the central deep portion of the left breast. Tissue markers are seen within the No other significant abnormalities are identified. There has been no significant change since the prior study. BI/SCRN MAMM (CAD)W/VESTA BILAT IMPRESSION: Stable bilateral screening mammogram. Yearly follow-up mammogram recommended. (A) ASSESSMENT CATEGORY: BIRADS Category 2: Benign. A letter regarding these results will be sent to the patient by the facility within 30 days. Approximately 10% of breast cancers are not detected by mammography. A normal mammogram should not delay biopsy of a clinically suspicious abnormality. [id number] Electronically Signed: Jeyson Morales MD at 14:47 EST ,
== END | disposition home or self-care (01) ==
PROVIDERS: PCP Family Medicine; Referring Provider Obstetrics & Gynecology; Visit Provider Obstetrics & Gynecology
DX: Z01.419 Encounter for gynecological examination (general) (routine) without abnormal findings (principal); Z12.31 Encounter for screening mammogram for malignant neoplasm of breast; N63.20 Unspecified lump in the left breast, unspecified quadrant
CPT/HCPCS: 77063; 77067

== ENCOUNTER → 2023-05-13 | Outpatient (CLI) | payer OTHER, SELFPAY ==
--- NOTE | 2023-05-13 13:47 | BI_ITS ---
MAMMOGRAPHY - BILATERAL SCREENING REASON FOR EXAM: Female, 53 years old. Routine annual screening examination. PERTINENT HISTORY: Non-contributory. History of prior left breast biopsy. TECHNIQUE: Digital bilateral breast vesta (3D mammographic acquisition) in the CC and MLO projections. 2-D mediolateral oblique (MLO) and craniocaudad (CC) views of both breasts were obtained. CAD: Full Field Digital Mammography with Computer Added Detection was performed. COMPARISON: Comparison is made with prior study dated May 03, 2022 and April 10, 2021. FINDINGS: Breast Composition: The breasts are extremely dense, which lowers the sensitivity of mammography. Stable 1.5 cm x 1.2 cm nodule with a focal calcification is once again seen in the central deep portion of the left breast. Tissue markers are seen within it. No other significant abnormalities are identified. There has been no significant change since the prior study. BI/SCRN MAMM (CAD)W/VESTA BILAT IMPRESSION: Stable bilateral screening mammogram. Yearly follow-up mammogram recommended. (A) ASSESSMENT CATEGORY: BIRADS Category 2: Benign. A letter regarding these results will be sent to the patient by the facility within 30 days. Approximately 10% of breast cancers are not detected by mammography. A normal mammogram should not delay biopsy of a clinically suspicious abnormality. [id number] Electronically Signed: Jeyson Morales MD at 14:59 EST ,
== END | disposition home or self-care (01) ==
LOC: OPBI 13:46
PROVIDERS: PCP Family Medicine; Referring Provider Family Medicine; Visit Provider Family Medicine
DX: Z12.31 Encounter for screening mammogram for malignant neoplasm of breast (principal)
CPT/HCPCS: 77063; 77067

== ENCOUNTER 2023-08-05 17:00 | Outpatient (RCR) | payer OTHER, SELFPAY ==
--- NOTE | 2023-07-15 17:21 | HP.PTEVAL_ITS ---
Patient's Visit Information Visit Information Visit Information: ANAIS VALENTIN is a 53 year old F referred to Physical Therapy by Dr. Tremaine Rao MD with a diagnosis of intermittent vertigo. Date of Evaluation: 07/15/23 Physical Therapist: Tremaine Oviedo, DPT, OCS, CSCS Visit Plan Frequency: 1-2x /Week Duration: 2-4 Weeks Plan: Will have patient back to test positional and treat accordingly up to 1- 2x/week for 4 weeks as needed for positional or referral back to doctor if no positives. Pt may see ENT at [facility]. Subjective Subjective: Vertigo. All of a sudden gets up upon moving in am. nauseous and spinning at times, floating. Lasts a day and a half sometimes and needs to take lorazepam. That happens 2x/year. She thinks the food she eats and position she sleeps in has something to do with it. Sleeping on side can trigger it. Activities are pretty normal Worked in [employer] previously and that might have bothered her at [employer]. Currently works at [employer] on [employer] much of day which is bothersome sometimes. Hobbies: Read is OK. Enjoys walking 7-10m min 4x/week unless flared up. Ear keep popping B. Saw ENT long time ago and found nothing, wanted MRI but did not do that. May go to [facility] E[facility]. Still does VOR from previous therapy and does it 6x/day. Feels a little dizzy short lived. 2020. Balance is Ok when she is not dizzy. Objective Objective: Balance is good and walks well. steps reciprocally without rail, transfers I chair. cervical aROM if full and painfree today, isometrics are painfree. - c/s compression. Full UE AROM without pain and 4-/5 strength. Oculomotor is unremarkable: no nystagmus with gaze or head shake - skew eye deviation - head thrust - ocular tilt - DVA is appropriately 2 lines from SVA pursuit and saccades are normal VOR is normalNone of these cause her dizzyness. Pt is fearful of lying down today to attempt positional testing and wishes to wait until family can bring her and work settles down. Will call in 1-2 weeks to schedule this. Balance/Special Test Scores Functional Gait Assessment Score: 30 % Disability: 0 CATSIB Score (Max score 120 seconds): 120 Dizziness Score: 44 Goals Goal 1:: check for positional and treat accordingly. Goal Time Frame: 2-4 Weeks Goal 2:: Pt feel dizzyness is manageable Goal Time Frame: 2-4 Weeks Goal 3:: 20 or less on DHI Goal Time Frame: 2-4 Weeks Rehabilitation Potential Physical Therapy Diagnosis: Possible BPPV symptoms limiting comfortable function at times. Rehabilitation Potential: Questionable Anticipated Interventions Patient/Client Instruction: Educate patient on: Condition and Risk Factors For the Purpose of:: To increase tolerance to activity/condition/position Comment: positional as needed For the Purpose of:: To improve gait and locomotor functions Text: Thank you for the opportunity to evaluate your patient. For Medicare and Medicare HMO plans, please review the plan of care and approve it. It will need to be FAXED BACK to us at [phone] for Medicare purposes. For Medicare only, by signing this I certify the plan of care. Please let me know if there are questions or concerns regarding this plan of care. Physician Signature: Date:
--- NOTE | 2023-08-05 17:15 | HP.PTDCSUM ---
Discharge Summary D/C summary: It has been my pleasure to treat ANAIS VALENTIN referred by Dr. Tremaine Rao MD, with the diagnosis of intermittent vertigo for a total of 2 visit(s). Discharge Date: 08/05/23 Please see the following information for a summary of their discharge status. Subjective Subjective: I sitll wake up with dizzyness described as lightheadedness which goes away after 2 minutes. Sometimes turns quickly and or looks down and feels woozy. Gets it full force at night and is worse in the evening. Described as weird feeling with movement and nausea. Sometimes lasts a couple days. Still keeps her form walking sometimes Has not had that in the last 3 weeks. Overall Improvement % Improvement: 0 Objective Objective/Function: - B hallpike ching - roll test Good balance today. Overall not much problem over last 3 weeks except some recurring morning up from bed lightheadedness for 1-2 minutes(orthostatic??) Goals Goal 1:: check for positional and treat accordingly. Goal Progress: Goal Met Goal 2:: Pt feel dizzyness is manageable Goal Progress: Not Progressing Goal 3:: 20 or less on DHI Goal Progress: Not Progressing Plan Plan: d/.c PT as no vestibular cause obvious. ot has other testing and doctor appointments lined up for this. D/C Information Discharge Comments: No vestibular PT required , Pt to f/u with doctor as needed for other steps. d/c sentence: If there are questions or concerns regarding this patient's physical therapy, please feel free to call me at [phone]. Thank you for the referral of this patient. Sincerely, Tremaine Oviedo, DPT, OCS, CSCS Balance/Gait/Functional tests Balance/Special Test Scores Functional Gait Assessment Score: 30 % Disability: 0 CATSIB Score (Max score 120 seconds): 120 Dizziness Score: 44 Improvement % Improvement: 0
== END 2023-08-05 19:00 | disposition home or self-care (01) ==
LOC: PT 17:00
PROVIDERS: PCP Family Medicine; Referring Provider Family Medicine; Visit Provider Family Medicine
DX: R42 Dizziness and giddiness (principal)
CPT/HCPCS: 97161; 97530

== ENCOUNTER → 2024-09-01 | Outpatient (CLI) | payer OTHER, SELFPAY ==
--- NOTE | 2024-09-01 16:07 | BI_ITS ---
EXAM: SCRN MAMM (CAD)W/VESTA BILAT 09/01/2024 CLINICAL HISTORY: F, Age 54 y/o , SCREENING. KNOWN STABLE MASS TECHNIQUE: Bilateral Diagnostic digital breast tomosynthesis with 2D and 3D images. Computer aided detection. COMPARISON: Prior exam(s) dated 05/13/2023, 05/03/2022. FINDINGS: TISSUE DENSITY: The breast tissue is heterogenously dense, which may obscure small masses. The mammogram demonstrates that the patient has dense breasts. Supplemental screening with whole breast ultrasound or MRI may be considered for further evaluation. Bilateral Breast Mammographic Findings: No significant masses, calcifications or other abnormalities are identified. BI/SCRN MAMM (CAD)W/VESTA BILAT IMPRESSION: Right Breast: BIRADS 1 NEGATIVE. Left Breast: BIRADS 1 NEGATIVE. OVERALL FINAL ASSESSMENT: BIRADS 1 NEGATIVE. RECOMMENDATION: Routine annual follow-up in 1 Year A letter with findings and recommendations will be mailed to the patient. Reading Location: [id number]
--- NOTE | 2024-09-01 16:23 | US_ITS ---
PROCEDURE: THYROID 09/01/2024 REASON FOR EXAM: THYROMEGALY, FIRM, L > R TECHNIQUE: Thyroid ultrasound COMPARISON: None. FINDINGS: Right thyroid lobe measures 5.4 x 1.5 x 1.7 cm. Left thyroid lobe measures 4.4 x 1.5 x 1.6 cm. Isthmus thickness is0.4 cm. Thyroid Size: Normal Background Echotexture: Homogeneous Thyroid Nodules: None US/Thyroid IMPRESSION: NORMAL THYROID ULTRASOUND Reading Location: [facility]
== END | disposition home or self-care (01) ==
PROVIDERS: PCP Family Medicine; Referring Provider Family Medicine; Visit Provider Family Medicine
DX: Z12.31 Encounter for screening mammogram for malignant neoplasm of breast (principal); E01.0 Iodine-deficiency related diffuse (endemic) goiter
CPT/HCPCS: 76536; 77063; 77067